=== PATIENT | female | born 1960 | race Hispanic/Latino ===

== ENCOUNTER → 2025-03-10 | Day surgery (SDC) | payer MEDICARE ==
[2025-03-09 08:50] LABS: BASOPHILS % 0.3 % (0.0-1.0); EOSINOPHILS # (AUTO) 0.3 (0.0-0.4); EOSINOPHILS % 3.7 % (0.0-6.0); HEMATOCRIT 41.2 % (34.2-44.1); HEMOGLOBIN 13.8 g/dL (12.0-16.0); LYMPHOCYTES # (AUTO) 1.8 (1.0-3.2); LYMPHOCYTES % 25.1 % (18.0-39.1); MEAN CORPUSCULAR HEMOGLOBIN 27.4 pg (28-32); MEAN CORPUSCULAR HGB CONC 33.5 g/dL (31-35); MEAN CORPUSCULAR VOLUME 81.9 fL (81-99); MONOCYTES # (AUTO) 0.5 (0.2-0.8); MONOCYTES % 6.6 % (4.4-11.3); NEUTROPHILS # (AUTO) 4.7 (2.1-6.9); PLATELET COUNT 223 x10e3/uL (140-360); RED BLOOD COUNT 5.03 x10e6/uL (3.6-5.1); WHITE BLOOD COUNT 7.26 x10e3/uL (4.8-10.8)
[2025-03-09 09:31] LABS: ANION GAP 14.2 mmol/L (8-16); CALCIUM 9.2 mg/dL (8.4-10.2); CREATININE, SERUM 0.79 mg/dL (0.57-1.11); POTASSIUM 4.2 mmol/L (3.5-5.1)
[~2025-03-10] MED LIST: ACETAMINOPHEN 1000 MG/100 ML 100 ML IV ONE; ACTOS15 MG PO; EPHEDRINE SULFATE INJ 50 MG/ML VIAL ONE; FEMARA2.5 MG PO; FENTANYL CITRATE/PF 100MCG/2 ML INJ ONE; HYDROXYZIN10 MG/5 ML PO; LEVOCETIRIZINE D5 MG PO; LEXAPRO20 MG PO; LIDOCAINE HCL 2% LOCAL INJ 5 ML SDV VIAL INJ ONE; METFORMIN HCL500 MG PO; METHIMAZOLE10 MG PO; NITROFURANTOIN100 MG PO; POTASSIUM PO; PROPOFOL IV EMULSION 10 MG/ML 20 ML VIAL ONE; SEVOFLURANE INHAL SOLN 250 ML PEN BTL ONE; TRADJENTA5 MG PO; VIT D3 PO
[2025-03-10] MEDS: LACTATED RINGER'S 1,000 ML ONE (07:30)
[2025-03-10] MEDS: CEFTRIAXONE 1 GM VIAL ONE (07:30)
[2025-03-10 09:05] VITALS: TEMP 98.7
[2025-03-10 09:55] VITALS: BP 135/76; PULSE 88; RESP 16; O2SAT 97
== END | disposition home or self-care (01) ==
LOC: OR 06:35
PROVIDERS: ATTEND Urology
DX: N30.10 Interstitial cystitis (chronic) without hematuria (principal); Z01.810 Encounter for preprocedural cardiovascular examination; Z01.812 Encounter for preprocedural laboratory examination
CPT/HCPCS: 36415 ×2; 52260; 71046; 74420; 80048; 82948; 85025; 93005; C1769; J0131; J0696; J2003; J2704; J3010; J7121